=== PATIENT | female | born 1970 | race Caucasian/White ===

== ENCOUNTER 2021-09-20 07:16 | Outpatient (REF) | payer OTHER, SELFPAY ==
[2021-09-20 07:37] LABS: MANUAL DIFF FLAG NO
[2021-09-20 08:14] LABS: Basophils Percent Auto 0.6 % (0-2); Eosinophils Absolute Auto 0.1 X10*3/uL (0.0-0.4); Eosinophils Percent Auto 2.6 % (0-4); Hemoglobin 10.9 g/dl (12.0-16.0); Imm Gran Abs Auto 0.01 X10*3/uL (0.00-0.03); Imm Gran Pct Auto 0.2 % (0.0-0.4); Lymphocytes Absolute Auto 2.1 X10*3/uL (1.2-4.9); Lymphocytes Percent Auto 39.3 % (20-40); Mean Corpuscular HGB Conc 31.1 g/dl (31.0-35.0); Mean Corpuscular Hemoglobin 25.1 pg (27.0-33.0); Mean Corpuscular Volume 80.5 fL (80.0-98.0); Mean Platelet Volume 9.3 fL (9.4-12.3); Monocytes Absolute Auto 0.4 X10*3/uL (0.1-1.2); Monocytes Percent Auto 7.6 % (2-11); Neutrophils Absolute Auto 2.7 x10*3/uL (2.0-8.3); Neutrophils Percent Auto 49.7 % (45-73); Platelet Count 332 X10*3/uL (160-400); Red Blood Count 4.35 X10*6/uL (4.20-5.50); Red Cell Distribution Width 15.9 % (11.0-16.0); White Blood Count 5.4 X10*3/uL (4.8-10.8)
[2021-09-20 08:17] LABS: Appearance Urine CLEAR; Color Urine YELLOW; Glucose Urine UA NEG (NEG); Leukocyte Esterase Urine NEG (NEG); Nitrite Urine NEG (NEG); PH 6.5 (5.0-8.0); Urine Blood NEG (NEG); Urine Ketones NEG (NEG); Urine Protein NEG (NEG-TRACE)
[2021-09-20 09:01] LABS: Alanine Aminotransferase 20 U/L (0-31); Albumin Level 4.2 g/dL (3.5-5.0); Alkaline Phosphatase 44 U/L (39-117); Anion Gap 11 (12-20); Aspartate Amino Transferase 18 U/L (5-31); Bilirubin Total 0.4 mg/dL (0.0-1.0); Blood Urea Nitrogen 17 mg/dL (9-16); Calcium 9.4 mg/dL (8.4-10.2); Carbon Dioxide 23 mmol/L (22-29); Chloride 108 mmol/L (96-108); Cholesterol 199 mg/dL; Estimated Glomerular Filt Rate > 60; Glucose Fasting 99 mg/dL (60-99); HDL Cholesterol 65 mg/dL; LDL Cholesterol Calculated 125 mg/dl; Potassium 4.5 mmol/L (3.3-5.1); Sodium 137 mmol/L (135-145); Triglycerides 49 mg/dL
[2021-09-20 09:03] LABS: Vitamin D 25-OH Total 27.3 ng/mL (>30)
== END 2021-09-20 07:17 | disposition home or self-care (01) ==
LOC: HO.LAB 07:16
PROVIDERS: PCP Internal Medicine; Visit Provider Internal Medicine
DX: Z00.00 Encounter for general adult medical examination without abnormal findings (principal); R42 Dizziness and giddiness; Z87.898 Personal history of other specified conditions
CPT/HCPCS: 36415; 80053; 80061; 81003; 82306; 85025

== ENCOUNTER → 2022-01-24 07:50 | Outpatient (BNVA) | payer OTHER, SELFPAY | PROVIDERS: PCP Internal Medicine; Referring Provider Internal Medicine; Visit Provider Nurse Practitioner Family | DX: Z12.11 Encounter for screening for malignant neoplasm of colon (principal) ==

== ENCOUNTER 2022-04-22 11:00 | Day surgery (SDC) | payer OTHER, SELFPAY ==
--- NOTE | 2022-04-21 12:25 | P.CONAN_ITS ---
Documented by User: Neelam Álvarez NP 04/21/22 12:28 HPI - Anesthesia Eval Consult details Narrative: 51yo F for Colonoscopy PMFSH Active Problems Active Problems: All Active Problems (Updated 10/29/21 @ 08:42 by Arianna Metcalf MD) Vitamin D deficiency (Acute) Iron deficiency anemia (Acute) Family history of early CAD (Acute) Hx of syncope (Acute) Past Medical History Medical History Family history of early CAD Hx of syncope Iron deficiency anemia Vitamin D deficiency Family History Family History Mother Myocardial infarction Maternal Grandmother Breast cancer Paternal Grandmother Uterine cancer Surgical History Surgical History No pertinent past surgical history Social History Social History Housing: House Alcohol intake: current Alcohol intake frequency: holidays/special occasions only Patient Tobacco Use Status: Former Tobacco user Quit Date: 1995 e-Cigarette/Vaping Use: Never Used Use of substances other than those prescribed or required for medical reasons: No Are you DNR?: No Advance Directives: No Advance Directives Information Provided: Yes service: No Current occupational status: employed Meds Allergies Allergy/AdvReac Type Severity Reaction Status Date / Time Sulfa (Sulfonamide Allergy Rash Verified 04/22/22 11:48 Antibiotics) Home Medications Medication Instructions Recorded Confirmed Last Taken Type multivitamin with iron 1 tab PO DAILY 08/30/21 04/19/22 Unknown History Exam Exam Date and Time: April 21, 2022 1225 Pertinent Lab Results Pertinent Lab Results: Laboratory Tests 09/20/21 09/20/21 07:36 07:36 WBC 5.4 Hgb 10.9 L Hct 35.0 L Plt Count 332 Sodium 137 Potassium 4.5 Chloride 108 Carbon Dioxide 23 BUN 17 H Creatinine 0.92 Narrative Narrative: EKG 08/2021 SB @ 56 cannot r/o anterior infarct Assessment and Plan Assessment Anesthesia Assessment: Chart Reviewed Documented by User: Lanette Toro MD 04/22/22 12:51 PMF Past Medical History Medical History Family history of early CAD Hx of syncope Iron deficiency anemia Vitamin D deficiency Family History Family History Mother Myocardial infarction Maternal Grandmother Breast cancer Paternal Grandmother Uterine cancer Family history of problems with anesthesia: No Surgical History Surgical History No pertinent past surgical history History of Problems with Anesthesia: No Social History Social History Housing: House Alcohol intake: current Alcohol intake frequency: holidays/special occasions only Patient Tobacco Use Status: Former Tobacco user Quit Date: 1995 e-Cigarette/Vaping Use: Never Used Use of substances other than those prescribed or required for medical reasons: No Are you DNR?: No Advance Directives: No Advance Directives Information Provided: Yes service: No Current occupational status: employed Meds Allergies Allergy/AdvReac Type Severity Reaction Status Date / Time Sulfa (Sulfonamide Allergy Rash Verified 04/22/22 11:48 Antibiotics) Home Medications Medication Instructions Recorded Confirmed Last Taken Type multivitamin with iron 1 tab PO DAILY 08/30/21 04/19/22 Unknown History Exam Airway Mallampati Class: II TM Dist: >3cm Neck ROM: Full Heart: rrr Lungs: cta Assessment and Plan Assessment Anesthesia Assessment: Anesthesia Plan Discussed and Chart Reviewed Final Anesthetic Review Family History of Problems with Anesthesia: No History of Problems with Anesthesia: No NPO: Yes ASA Class: II Final Preanesthetic Review: No Changes in Pt Med Stat, Meds/Allgs Chart Reviewed and Consent Obtained/Reviewed Patient Risk: Intermediate Procedure Risk: Intermediate Anesthetic Plan Anesthetic Plan: MAC: Disposition: Standard PACU
[2022-04-22 11:32] VITALS: BP 126/78; PULSE 78; RESP 16; TEMP 36.4; O2SAT 100
[2022-04-22 12:01] VITALS: BMI 25.8
[2022-04-22] MEDS: Lactated Ringers 1,000 ML 100 ML IVCONT (12:01)
--- NOTE | 2022-04-22 12:13 | MHC.SHP ---
Pre-Procedural Eval Section A Date of Service: 04/22/22 The patient is an INPATIENT: No The History & Physical has been completed within 30 days and I have reviewed it.: No Section B Chief Complaint: screening Details of Present Illness: Colon cancer screening Relevant Family History (Specify if Yes): No Relevant Social History: None Present Medications: see Short Stay Collaborative assessment Medical History: Significant History (Family history of early CAD Hx of syncope Iron deficiency anemia Vitamin D deficiency) History of Previous Operations: No relevant previous surgery Allergies: Allergies Allergy/AdvReac Type Severity Reaction Status Date / Time Sulfa (Sulfonamide Allergy Rash Verified 04/22/22 11:48 Antibiotics) Review of Systems Sugical H&P ROS: Negative: Constitution, Cardiovascular, Respiratory and Gastrointestinal Exam Surgical H&P Exam: Normal: Heart, Normal: Lungs, Normal: Extremities and Normal: Abdomen Plan Diagnosis/Plan: Unchanged I have reviewed the history and physical and performed a pertinent physical examination on my patient. No changes have occurred unless specified.
--- NOTE | 2022-04-22 12:51 | P.OP_ITS ---
Operative Note Operative Note Date of Service: 04/22/22 Narrative: Pre-op diagnosis: Colon cancer screening Post-op diagnosis:?other (Colon polyp, diverticulosis, hemorrhoids) Procedure: COLONOSCOPY TILL CECUM WITH BIOPSIES Consent: Indications for the procedure and potential complications of bleeding, perforation, reaction to medications and missed diagnosis were discussed with the patient and informed consent was obtained. Instrument: Olympus PCF H 190 L variable stiffness pediatric colonoscope Monitoring: Vital signs and clinical assessment, intermittent blood pressure monitoring, continuous EKG monitoring, Pulse oximetry and Carbon Dioxide monitoring were done throughout the procedure. Colon withdrawl time was 22 minutes. Procedure: The patient was placed in the left lateral decubitis position and pre-procedure medications were administered. After a digital rectal examination of the ano-rectum, the video colonoscope was inserted into the rectum and advanced through the colon to the cecum. The colonoscope was slowly withdrawn in a retrograde panoramic fashion and the colon mucosa was carefully examined including a retroflexed view of the rectum. Findings and interventions are described below. Procedure Difficulty:? Colon was long and tortuous and there was some loop formation- no maneuvers were required Findings: Terminal Ileum: Not evaluated Cecum:? A 4-5 mm diminutive appearing polyp removed with a cold biopsy Ascending Colon:? Normal Transverse Colon:? Normal Descending Colon:? Normal Sigmoid Colon:? Mild diverticulosis Rectum:? Normal Ano-rectum:? Moderate internal hemorrhoids Colon preparation:? Good after some irrigation Impression and Post Procedure Diagnosis: Colonoscopy Findings: One diminutive appearing polyp removed Mild diverticulosis seen in the sigmoid colon Moderate hemorrhoids on retroflexed exam. Plan: Await pathology results Patient has an appointment on 05/30/22 in the GI Clinic with ? Jagruti Snyder FNP-GEREMIAS . Repeat Colonoscopy interval based on path results - in 5 years if polyps are adenomatous and 10 years if polyps are hyperplastic. (adult colonoscope for future colonoscopies) Above findings were reviewed with the patient and colon polyps and diverticulosis handouts were given in the discharge area Surgeon: Nirav Wing MD Anesthesia:?MAC Was an [employer] used for this Procedure?:?Yes Cleaner Housekeeping:?Pito Tinsley Estimated blood loss (mL):?0 Pathology:?other (A) Polyp Cecal) Condition:?stable Disposition:?PACU
[2022-04-22 13:37] VITALS: BP 102/56; PULSE 80; RESP 16; TEMP 36.6; O2SAT 99
[2022-04-22 13:53] VITALS: BP 108/62; PULSE 58; RESP 15; O2SAT 100
[2022-04-22 14:07] VITALS: BP 112/69; PULSE 54; RESP 16; O2SAT 100
[2022-04-22 14:26] VITALS: TEMP 36.8
== END 2022-04-22 14:55 | disposition home or self-care (01) ==
PROVIDERS: PCP Internal Medicine; Visit Provider Internal Medicine Gastroenterology
PROC: 0DJD8ZZ Inspection of Lower Intestinal Tract, Via Natural or Artificial Opening Endoscopic (ICD-10-PCS; CPT 45378; principal; 2022-04-22 11:50)
DX: Z12.11 Encounter for screening for malignant neoplasm of colon (principal); K63.5 Polyp of colon; K57.30 Diverticulosis of large intestine without perforation or abscess without bleeding; K64.8 Other hemorrhoids; Z88.1 Allergy status to other antibiotic agents; D50.9 Iron deficiency anemia, unspecified; E55.9 Vitamin D deficiency, unspecified; Z87.891 Personal history of nicotine dependence; Z79.899 Other long term (current) drug therapy
CPT/HCPCS: 45380; 88305

== ENCOUNTER 2023-04-14 11:36 | Outpatient (AMB) | payer OTHER, SELFPAY ==
--- NOTE | 2023-04-14 11:51 | MHC.PC.OV ---
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 Allergies Sulfa (Sulfonamide Antibiotics) Allergy (Verified 04/14/23 12:16) Rash Medication List - Last Reconciled 04/14/23 by Arianna Metcalf MD geriatric multivitamin-min caps PO Tobacco use date assessed: 04/14/23 Dental Screening Dental Screen Date: 04/14/23 Did you have a dental visit in the last 12 months?: Yes Did you have a dental problem in the last 6 months where you did not have access to dental care?: No Was dental information given to patient?: Patient has dentist HPI discuss referral HPI Details 52-year-old lady here today complaining of painful ingrown toenails both big toes, this has been present now for several weeks, has tried soaking them in Epsom salt water and lifting the nail , but has not been able to do it. Requests referral to podiatry. Has been complaining of feeling more tired lately, denies any accompanying shortness of breath or chest pain, does have history of vitamin-D deficiency and anemia, currently not taking any medications other than multivitamins. [facility] Medical History (Updated 04/14/23 @ 12:31 by Arianna Metcalf MD) Family history of early CAD Hx of syncope Ingrowing toenail without infection Iron deficiency anemia Lack of energy Perimenopausal symptom Vitamin D deficiency Surgical History No pertinent past surgical history Family History Mother Myocardial infarction Maternal Grandmother Breast cancer Paternal Grandmother Uterine cancer Social History Housing: House Alcohol intake: current Alcohol intake frequency: holidays/special occasions only Patient Tobacco Use Status: Former Tobacco user Quit Date: 1995 e-Cigarette/Vaping Use: Never Used service: No Current occupational status: employed Cognitive needs: No Hearing needs: No Vision needs: Yes Questionnaire PHQ-9 Over the last 2 weeks, how often have you been bothered by any of the following problems? 1. Little interest or pleasure in doing things: not at all 2. Feeling down, depressed, or hopeless: not at all 3. Trouble falling or staying asleep, or sleeping too much: several days 4. Feeling tired or having little energy: several days 5. Poor appetite or overeating: not at all 6. Feeling bad about yourself - or that you are a failure or have let yourself or your family down: not at all 7. Trouble concentrating on things, such as reading the newspaper or watching television: not at all 8. Moving or speaking so slowly that other people could have noticed. Or the opposite - being so fidgety or restless that you have been moving around a lot more than usual: not at all 9. Thoughts that you would be better off or of hurting yourself in some way: not at all Total score: 2 Depression Screening Interpretation: Negative 19239 - PHQ-9 Billing: Yes Source: Developed by Drs. Pito Rudolph, Khloe Marin, Greg Gutierrez and colleagues, with an educational emre from [email or web address]. Thrive Questionnaire Date Thrive assessed: 04/14/23 I am a: Patient What is your living situation today?: I have a steady place to live Within the past 12 months, did the food you bought not last and you didn't have the money to get more?: Never true Within the past 12 months, did you worry whether your food would run out before you got money to buy more?: Never true Do you have trouble paying for medicines?: No Do you have trouble getting transportation to medical appointments?: No Do you have trouble paying your heating and electricity bill?: No Do you have trouble taking care of your child, family member or friend?: No Do you have trouble with day-to-day activities such as bathing, preparing meals, shopping, managing finances, etc.?: No Are you currently unemployed and looking for a job?: No Are you interested in more education?: Yes AUDIT C Alcohol Use Questionnaire (AUDIT-C) 1. How often do you have a drink containing alcohol?: Never Total Score: 0 SIMONA-7 AMB Questionnaire SIMONA-7 Date SIMONA - 7 assessed: 08/30/21 Feeling nervous, anxious, or on edge: 1 = Several days Not being able to stop or control worryin = Several days Worrying too much about different things: 1 = Several days Trouble relaxin = Several days Being so restless that it is hard to sit still: 1 = Several days Becoming easily annoyed or irritable: 1 = Several days Feeling afraid as if something awful might happen: 0 = Not at all Total SIMONA-7 score (0-4 normal; 5-9 mild; 10-14 moderate; 15-21 severe): 6 Source: Developed by Drs. Pito Rudolph, Khloe Marin, Greg Gutierrez and colleagues, with an educational emre from [email or web address]. SIMONA-7 Assessment Billing SIMNOA-7 Assessment Tool: SIMONA-7 Assessment 51940 Review of Systems Const All systems reviewed & are unremarkable except as noted in HPI and below Physical exam (Primary Care) Vital Signs: Last Vital Signs Pulse 94 04/14/23 11:53 BP 104/60 04/14/23 11:53 Pulse Ox 99 04/14/23 11:53 Oxygen Delivery Method Room Air 04/14/23 11:53 BMI result Body Mass Index 28.0 Tobacco/Smoking Status: Tobacco use Status Tobacco use date assessed 04/14/23 04/14/23 11:55 Patient Tobacco Use Status Former Tobacco user 04/14/23 11:55 e-Cigarette/Vaping Use Never Used 04/14/23 11:55 PHQ-9: PHQ-9 Score PHQ-9: Total score 2 04/14/23 12:36 Depression Screening Interpretation: Negative Thrive Assessment: Date of Thrive Assessment Date Thrive assessed 04/14/23 04/14/23 12:36 Const Other: Alert oriented x3, no acute cardiorespiratory distress noted HENMT Mouth: Normal oral and palatal mucosa present, oropharynx normal and moist mucous membranes Eyes General: appearance normal, both eyes and all related structures Neck Neck: Yes full ROM, Yes no lymphadenopathy and Yes supple Thyroid: Thyroid normal Resp Auscultation: clear to auscultation bilaterally Cardio Other: S1-S2 present regular rate and rhythm GI Palpation (GI): Soft to palpation, nontender, no guarding and no masses Skin Other: Ingrown toenails in both big toes, with periungual area tender to palpation General skin exam: no rashes or lesions noted Extrem General: Yes full ROM, Yes no joint enlargement, Yes no clubbing, cyanosis or edema and Yes normal gait Assessment and Plan Assessment & Plan (1) Ingrowing toenail without infection: Code(s): L60.0 - Ingrowing nail Plan: Referral to podiatry ordered (2) Iron deficiency anemia: Code(s): D50.9 - Iron deficiency anemia, unspecified (3) Vitamin D deficiency: Code(s): E55.9 - Vitamin D deficiency, unspecified (4) Lack of energy: Code(s): R53.83 - Other fatigue (5) Perimenopausal symptom: Code(s): N95.1 - Menopausal and female climacteric states Orders: Orders IRON PROFILE 04/14/23 D50.9 - Iron deficiency anemia, unspecified, E55.9 - Vitamin D deficiency, unspecified, R53.83 - Other fatigue Complete Blood Count Auto Diff 04/14/23 D50.9 - Iron deficiency anemia, unspecified, E55.9 - Vitamin D deficiency, unspecified, R53.83 - Other fatigue Vitamin B12 and Folate 04/14/23 D50.9 - Iron deficiency anemia, unspecified, E55.9 - Vitamin D deficiency, unspecified, R53.83 - Other fatigue TSH reflex Free T4 04/14/23 D50.9 - Iron deficiency anemia, unspecified, E55.9 - Vitamin D deficiency, unspecified, R53.83 - Other fatigue Vitamin D 25-OH Total 04/14/23 D50.9 - Iron deficiency anemia, unspecified, E55.9 - Vitamin D deficiency, unspecified, R53.83 - Other fatigue Referrals Podiatry Referral L60.0 - Ingrowing nail Coding Level of Care Code Est Pt Level 3 (68675) Diagnoses Ingrowing toenail without infection L60.0 Iron deficiency anemia D50.9 Vitamin D deficiency E55.9 Lack of energy R53.83 Perimenopausal symptom N95.1 Additional Codes SIMONA-7 Assessment Billing - SIMONA-7 Assessment Tool: SIMONA-7 Assessment 37417 ([id number])
[2023-04-14 11:53] VITALS: BP 104/60; PULSE 94; O2SAT 99; BMI 28.0
== END 2023-04-14 13:10 | disposition home or self-care (01) ==
PROVIDERS: PCP Internal Medicine; Visit Provider Internal Medicine
DX: L60.0 Ingrowing nail (principal); D50.9 Iron deficiency anemia, unspecified; E55.9 Vitamin D deficiency, unspecified; R53.83 Other fatigue; N95.1 Menopausal and female climacteric states
CPT/HCPCS: 99213

== ENCOUNTER 2023-04-14 12:31 | Outpatient (REF) | payer OTHER, SELFPAY ==
[2023-04-14 16:16] LABS: MANUAL DIFF FLAG NO
[2023-04-14 16:37] LABS: Basophils Percent Auto 0.7 % (0-2); Eosinophils Absolute Auto 0.1 X10*3/uL (0.0-0.4); Hematocrit 33.5 % (37.0-47.0); Hemoglobin 10.3 g/dl (12.0-16.0); Imm Gran Abs Auto 0.01 X10*3/uL (0.00-0.03); Imm Gran Pct Auto 0.2 % (0.0-0.4); Lymphocytes Absolute Auto 1.7 X10*3/uL (1.2-4.9); Lymphocytes Percent Auto 31.9 % (20-40); Mean Corpuscular HGB Conc 30.7 g/dl (31.0-35.0); Mean Corpuscular Hemoglobin 25.2 pg (27.0-33.0); Mean Corpuscular Volume 82.1 fL (80.0-98.0); Mean Platelet Volume 9.8 fL (9.4-12.3); Monocytes Absolute Auto 0.4 X10*3/uL (0.1-1.2); Neutrophils Absolute Auto 3.2 x10*3/uL (2.0-8.3); Neutrophils Percent Auto 58.2 % (45-73); Platelet Count 367 X10*3/uL (160-400); Red Blood Count 4.08 X10*6/uL (4.20-5.50); White Blood Count 5.5 X10*3/uL (4.8-10.8)
[2023-04-14 17:10] LABS: Iron 18 mcg/dL (30-160); Percent Iron Saturation 5 % (15-50); Total Iron Binding Capacity 372 mcg/dL (228-428); Unsaturated Iron Binding 354 ug/dL
[2023-04-14 17:16] LABS: TSH reflex Free T4 1.81 uIU/mL (0.32-4.0); Vitamin D 25-OH Total 46.6 ng/mL (>30)
[2023-04-14 17:44] LABS: Folate > 20.0 ng/mL (> or = 4.0); Vitamin B12 359 pg/mL (200-900)
== END 2023-04-14 12:32 | disposition home or self-care (01) ==
LOC: HO.HMGCLDS 12:31
PROVIDERS: PCP Internal Medicine; Visit Provider Internal Medicine
DX: D50.9 Iron deficiency anemia, unspecified (principal); E55.9 Vitamin D deficiency, unspecified; R53.83 Other fatigue
CPT/HCPCS: 36415; 82306; 82607; 82746; 83540; 84443; 85025

== ENCOUNTER 2024-06-08 09:10 | Outpatient (AMB) | payer OTHER, SELFPAY ==
[2024-06-08 09:28] VITALS: BP 116/72; PULSE 98; TEMP 36.6; O2SAT 97
--- NOTE | 2024-06-08 09:28 | MHC.OFFWIV ---
Intake Vital Signs 06/08/24 09:28 Height 5 ft 8 in BP 116/72 Blood Pressure Location Rt brachial Position Sitting Pulse 98 Pulse Source Pulse Oximeter Temp 97.8 F Temp Source Temporal Artery Scan Pulse Oximetry (%) 97 Intake Visit Reasons: EP Rash back LT knee Intake Note: pt is here for rash on back of left knee Patient Tobacco Use Status: Former Tobacco user Accompanied by: Self / Same As Patient Allergies Sulfa (Sulfonamide Antibiotics) Allergy (Verified 06/08/24 09:28) Rash Do you need a note to return to daycare/school/sports/work: No HPI HPI Comments History of Present Illness Details Patient is a 53yo F who presents to office with rash and itching to posterior L knee She said ongoing x a few days Using daily soap cleanings, baking soda without relief Minimal pain but + ithing + blistering and said skin comes off No spreading of rash elsewhere No trauma or injury known Denies fever or chills States she thinks it is parasitic because she feels like eggs are in her bed because she gets burning itching to posterior legs while resting at night States she thought she saw a flea in her bed once No one else with similar rashes Denies rashes elsewhere on body PFSH Medical History (Updated 06/08/24 @ 10:17 by Sheba Watson PA-C) Perimenopausal symptom Lack of energy Ingrowing toenail without infection Vitamin D deficiency Iron deficiency anemia Family history of early CAD Hx of syncope Surgical History No pertinent past surgical history Family History Mother Myocardial infarction Maternal Grandmother Breast cancer Paternal Grandmother Uterine cancer Social History Housing: House Alcohol intake: current Alcohol intake frequency: holidays/special occasions only Patient Tobacco Use Status: Former Tobacco user e-Cigarette/Vaping Use: Never Used service: No Current occupational status: employed Cognitive needs: No Hearing needs: No Vision needs: Yes Review of Systems Const Denies chills and Denies fever(s) Resp Denies cough Musc Denies myalgias Skin/Breast Reports pruritus, Reports erythema, Reports rash and Reports skin pain Physical Exam Vital Signs: Last Vital Signs Temp 97.8 F 06/08/24 09:28 Pulse 98 06/08/24 09:28 BP 116/72 06/08/24 09:28 Pulse Ox 97 06/08/24 09:28 General: Non-toxic, NAD. Speaking full sentences. Skin: Bilateral legs visualized and there is only one skin lesion noted; it is located posterior L popliteal region. Area is oval in shape approx 5cm x 3cm with well defined borders. + 3-4 small yellow vesicles along outter edge without active drainage. No FB or vesicles noted. + warm to touch with edema Area appears dry. No rashes or lesions elsewhere on body Respiratory: No respiratory distress Cardiac: RRR. No murmur MSK: Standing upright with steady gait Neurology: A/O. No aphasia or facial droop. Psych: Good mood and affect Assessment & Plan Assessment & Plan (1) Cellulitis: Code(s): L03.90 - Cellulitis, unspecified Qualifiers: Site of cellulitis: unspecified site Qualified Code(s): L03.90 - Cellulitis, unspecified Plan: Patient seen and evaluated. I discussed in depth how current symptoms are consistent with bacterial cellulitis but pt refused to agree and insists this is parasitic. I told pt how my medical recommendation is to initiate oral antibiotics for infection but she refused She is aware I will not prescribe an antiparasitic for current infection and I asked if there was anything further I could do for her and she refused I then advised her to seek care elsewhere because infection needs to be treated and will only get worse Patient gave verbal understanding and had no additional questions or concerns at time of discharge All questions answered Coding Level of Care Code Est Pt Level 3 (83047) Diagnoses Cellulitis, unspecified cellulitis site L03.90 Site of cellulitis: unspecified site
== END 2024-06-08 10:08 | disposition home or self-care (01) ==
PROVIDERS: PCP Internal Medicine; Visit Provider Physician Assistant
DX: L03.90 Cellulitis, unspecified (principal)

== ENCOUNTER → 2024-06-08 09:10 | Outpatient (BNVA) | payer OTHER, SELFPAY | PROVIDERS: PCP Internal Medicine | DX: L03.116 Cellulitis of left lower limb (principal) ==